=== PATIENT | male | born 1950 | race Caucasian/White ===

== ENCOUNTER → 2016-10-22 | Outpatient (CLI) | payer BC, OTHER | END | disposition home or self-care (01) | LOC: GMA 12:23 | PROVIDERS: ATTEND Nurse Practitioner Family | DX: D03.59 Melanoma in situ of other part of trunk (principal) ==

== ENCOUNTER → 2017-03-05 | Outpatient (CLI) | payer BC | END | disposition home or self-care (01) | LOC: GMAB 10:35 | PROVIDERS: ATTEND Family Medicine | DX: Z12.5 Encounter for screening for malignant neoplasm of prostate (principal); E03.9 Hypothyroidism, unspecified; E29.1 Testicular hypofunction; R53.83 Other fatigue ==

== ENCOUNTER → 2017-03-20 | Outpatient (CLI) | payer BC ==
--- NOTE | 2017-03-23 09:57 | US ---
EXAM DESCRIPTION: Testicular CLINICAL HISTORY: 66 years Male, SWELL swelling COMPARISON: None. TECHNIQUE: Sonographic images of the scrotum are obtained. FINDINGS: The right testicle measures 4.4 x 2.8 x 2.5 cm. The left testicle measures 4.7 x 3.1 x 2.2 cm. Testicles are diffusely homogeneous and normal in echogenicity. Right epididymis measures 10 x 15 x 6 mm and is unremarkable. The left epididymis measures 14 x 19 x 10 mm. No definite cystic lesion of the abdomen is seen. No significant hydrocele is identified. In the area of palpable abnormality, there is soft tissue that appears increased vascularity during Valsalva maneuver. IMPRESSION: In the area of palpable abnormality in the left scrotum, there appears to be a mild varicocele. Otherwise unremarkable scrotal ultrasound. Electronically signed by: Angel Lester MD 03/23/2017 9:56 AM CDT
== END | disposition home or self-care (01) ==
LOC: US 09:10
PROVIDERS: ATTEND Urology
DX: N50.89 Other specified disorders of the male genital organs (principal)

== ENCOUNTER → 2017-08-28 | Outpatient (CLI) | payer BC | END | disposition home or self-care (01) | LOC: GMA 10:44 | PROVIDERS: ATTEND Nurse Practitioner Family | DX: D03.59 Melanoma in situ of other part of trunk (principal) ==

== ENCOUNTER → 2018-11-19 | Outpatient (CLI) | payer BC | LOC: GMAE 11:49 | PROVIDERS: ATTEND Family Medicine | DX: D03.59 Melanoma in situ of other part of trunk (principal) ==

== ENCOUNTER → 2019-08-08 | Outpatient (CLI) | payer BC | LOC: GMAE 10:47 | PROVIDERS: ATTEND Family Medicine | DX: D03.59 Melanoma in situ of other part of trunk (principal); I10 Essential (primary) hypertension; Z12.5 Encounter for screening for malignant neoplasm of prostate ==

== ENCOUNTER → 2020-01-19 | Outpatient (CLI) | payer BC | LOC: GMAE 11:16 | PROVIDERS: ATTEND Family Medicine | DX: Z12.5 Encounter for screening for malignant neoplasm of prostate (principal); I10 Essential (primary) hypertension ==